=== PATIENT | female | born 1995 | race Caucasian/White ===

== ENCOUNTER 2018-12-10 09:04 | Emergency (ER) | payer OTHER, SELFPAY ==
[2018-12-10 09:11] VITALS: BP 127/62; PULSE 88; RESP 18; TEMP 37.2; O2SAT 97
--- NOTE | 2018-12-10 09:33 | ED.GENADUL_ITS ---
Discharge Plan Disposition Patient Disposition: HOME Condition: Stable Discharge Details Chief Complaint: Orthopedic Clinical Impression: Right ankle sprain Primary Care Provider: Flash Anna ED Provider: Karen Park Home Meds and New Rx's Prescriptions: Continued ibuprofen 600 MG tablet 600 mg PO Q6H PRN (Reason: Pain) Qty: 20 RF: 0 Discharge Instructions Instructions: Ankle Sprain (ED) Additional Instructions: Rest, ice, elevate right ankle as much as possible. Use the crutches for ambulation, then bear weight as tolerated over the next few days. Follow-up with your primary care doctor for reevaluation. Follow-up with orthopedics if your pain persists or worsens. Return immediately to the emergency department any worsening or new concerning symptoms. Stand Alone Forms: Work Release Referrals: Navarro Malik MD [ [facility] STAFF PHYSICIAN] - Discharge Data Discharge Physician: Karen Park Medical Decision Making 23-year-old female presents with right ankle pain after 2 twisting injury since last night. Tenderness to palpation right anterior and lateral ankle. No deformity. Neurovascular intact. No proximal leg, knee or foot tenderness to palpation. Patient denies chance of . She is declining a test. Will give a dose of Motrin and sent for a right ankle x-ray. 1040 --ankle x-ray negative. Instructed to rest, ice, elevate. She is requesting crutches. We will send with ankle stirrup splint and crutches. Instructed to follow with the primary care doctor for reevaluation and to return at any time if worse. HPI General Mode of arrival: ambulatory . Date/Time Provider Initiated Documentation: 12/10/18 09:33 . Limitations to Documentation: no limitations . Information obtained by: patient . HPI Narrative: Patient is a 23 yr old female presents with right ankle pain after 2 injuries in which she twisted her ankle while walking since last night. Pain with weightbearing. Has not taken anything for pain this morning. She denies any proximal leg or knee pain. She denies any foot pain. Related Data Home Medications Medication Instructions Recorded Confirmed ibuprofen 600 mg PO Q6H PRN #20 tab 04/09/17 12/10/18 Previous Rx's Medication Instructions Recorded ibuprofen 600 mg PO Q6H PRN #20 tab 04/09/17 Allergies Allergy/AdvReac Type Severity Reaction Status Date / Time hydrocodone [From Vicodin] AdvReac Severe Nausea Unverified 12/10/18 09:15 General Stated Complaint: Orthopedic MARISSA: 4 Review of Systems Review of Systems All systems reviewed & are unremarkable except as noted in HPI and below PFSH Medical History H/O wisdom tooth extraction (Acute) Vitamin D deficiency (Acute) Surgical History Hx of adenoidectomy (Acute) Hx of tonsillectomy (Chronic) Social History Smoking/Tobacco Use Status: Never Alcohol Intake: never Substance use type: does not use Do you feel safe at home: Yes Do you feel safe in your relationship?: Yes Exam Const General: cooperative, healthy appearing and no acute distress HENMT Head: normal to inspection Mouth: oral mucosae normal Eyes General: appearance normal, both eyes and all related structures Neck Neck: normal visual inspection Resp Effort & Inspection: normal respiratory effort and able to speak in complete sentences Cardio Rate: regular rate Skin General skin exam: no rashes or lesions noted Neuro General: alert, awake and oriented x3 Motor: muscle tone normal throughout Extrem Right lower extremity: knee Details: no tenderness and no swelling, lower leg (No tenderness to proximal fibula), ankle Details: tenderness Location: of the lateral malleolus and anterolaterally and normal ROM; no swelling, no unusual warmth, no lacerations, no ecchymosis and no crepitus and foot (No deformity) Details: vascular exam Details: dorsalis pedis pulse present and posterior tibial pulse present Psych Appearance: grossly normal Affect: normal affect Course Vital Signs Temperature 99.0 F 12/10/18 09:11 Pulse 88 12/10/18 09:11 Respiratory Rate 18 12/10/18 09:11 Blood Pressure 127/62 12/10/18 09:11 Pulse Oximetry 97 12/10/18 09:11 Temperature 99.0 F 12/10/18 09:11 Temperature Source Temporal Artery Scan 12/10/18 09:11 Pulse 88 12/10/18 09:11 Respiratory Rate 18 12/10/18 09:11 Respiratory Effort Non-Labored 12/10/18 09:14 Blood Pressure 127/62 12/10/18 09:11 Blood Pressure Position Sitting 12/10/18 09:11 Pulse Oximetry 97 12/10/18 09:11 Oxygen Delivery Method Room Air 12/10/18 09:11 Oxygen Flow Rate 0 12/10/18 09:11 Pain Level 6 12/10/18 09:17
--- NOTE | 2018-12-10 09:47 | DI.RAD_ITS ---
SYMPTOM/DIAGNOSIS: S/P TWISTING RT ANKLE, R/O ACUTE FRACTURE RIGHT ANKLE: Three views. No acute fracture or dislocation is present. The soft tissues are unremarkable. IMPRESSION: No acute abnormality.
[2018-12-10] MEDS: Ibuprofen 600 MG TAB PO (09:54)
== END 2018-12-10 11:38 | disposition home or self-care (01) ==
PROVIDERS: Emergency Provider Physician Assistant; PCP Nurse Practitioner
DX: S93.401A Sprain of unspecified ligament of right ankle, initial encounter (principal); X50.9XXA Other and unspecified overexertion or strenuous movements or postures, initial encounter
CPT/HCPCS: 29125; 99283; 73610; 99282; E0114; L4350

== ENCOUNTER 2019-01-22 13:56 | Outpatient (REF) | payer OTHER, SELFPAY ==
[2019-01-25 13:34] LABS: GC Result Negative; Specimen Description URINE
[2019-01-25 16:21] LABS: Chlamydia Result Positive
== END 2019-01-22 14:16 ==
LOC: LBN 13:56
PROVIDERS: PCP Nurse Practitioner; Visit Provider Nurse Practitioner Women's Health
DX: Z11.3 Encounter for screening for infections with a predominantly sexual mode of transmission (principal)
CPT/HCPCS: 87491; 87591

== ENCOUNTER 2019-03-03 13:52 | Outpatient (REF) | payer OTHER, SELFPAY ==
--- NOTE | 2019-03-03 13:35 | PAPFT_PTH ---
PATIENT: Suzette Cobos LOC: [facility] U#:[id number] AGE/SX: 23/F ROOM: RE03/03/[address]: Marita Fletcher NP : 1995 BED: DIS: 03/03/2019 SPEC #: [id number] RECD: 03/03/19 17:43 STATUS: DARLENE ARCHER #: [id number] [place]: 03/03/19 13:[address]: Marita Fletcher NP DEPT: [facility] Cytology RECD BY: Bella Roberts ENTERED: 03/03/19 17:43 SP TYPE: PAPFT OTHR DR: Matthew Anna Tissues: 1 - CX/ENDOCX FOR PAP SMEARS Procedures: PAP THIN PREP/[facility] Screening Comments: [id number] (CHLAMYDIA/GC)
[2019-03-04 13:18] LABS: Chlamydia Result Negative; GC Result Negative; Specimen Description SEE COMMENTS
== END 2019-03-03 14:12 ==
LOC: LBN 13:52
PROVIDERS: PCP Nurse Practitioner; Visit Provider Nurse Practitioner Women's Health
DX: Z12.4 Encounter for screening for malignant neoplasm of cervix (principal); Z11.3 Encounter for screening for infections with a predominantly sexual mode of transmission
CPT/HCPCS: 87491; 87591; 88142

== ENCOUNTER 2020-07-31 18:34 | Outpatient (REF) | payer BC, SELFPAY ==
[2020-08-04 11:16] LABS: Chlamydia Result Negative (Negative); GC Result Negative (Negative); Specimen Description Cervix
== END 2020-07-31 18:54 ==
LOC: LBN 18:34
PROVIDERS: PCP Nurse Practitioner; Visit Provider Nurse Practitioner Women's Health
DX: Z11.3 Encounter for screening for infections with a predominantly sexual mode of transmission (principal)
CPT/HCPCS: 87491; 87591

== ENCOUNTER 2024-09-13 13:57 | Outpatient (CLI) | payer OTHER, SELFPAY ==
[2024-09-13 13:58] LABS: Hemoglobin A1C 5.6 % (<5.7)
[2024-09-13 14:15] LABS: TSH (W/Ref FT4) 3.61 uIU/mL (0.36-3.74)
== END 2024-09-13 13:58 | disposition home or self-care (01) ==
LOC: LBO 13:57
PROVIDERS: PCP Nurse Practitioner; Visit Provider Nurse Practitioner Women's Health
DX: R63.5 Abnormal weight gain (principal)
CPT/HCPCS: 36415; 83036; 84443

== ENCOUNTER 2024-09-13 14:18 | Outpatient (REF) | payer OTHER, SELFPAY ==
--- NOTE | 2024-09-13 13:15 | PAPFT_PTH ---
PATIENT: Suzette Cobos LOC: [facility] U#:[id number] AGE/SX: 29/F ROOM: RE09/13/[address]: Marita Fletcher NP : 1995 BED: DIS: 09/13/2024 SPEC #: [id number] RECD: 09/13/24 17:14 STATUS: DARLENE REShira #: [id number] [place]: 09/13/24 13:[address]: Marita Fletcher NP DEPT: [facility] Cytology RECD BY: Bella Roberts ENTERED: 09/13/24 17:14 SP TYPE: PAPFT OTHR DR: Matthew Anna Tissues: 1 - CX/ENDOCX FOR PAP SMEARS Procedures: PAP THIN PREP/[facility] Screening HPV DNA PROBE Comments: [id number] (HPV 16 & 18/45)
== END 2024-09-13 14:19 | disposition home or self-care (01) ==
LOC: LBN 14:18
PROVIDERS: PCP Nurse Practitioner; Visit Provider Nurse Practitioner Women's Health
DX: R63.5 Abnormal weight gain (principal); Z01.419 Encounter for gynecological examination (general) (routine) without abnormal findings
CPT/HCPCS: 88142; 87624